=== PATIENT | male | born 1970 | race Caucasian/White ===

== ENCOUNTER 2020-03-16 01:07 | Day surgery (SDC) | payer OTHER, SELFPAY ==
[2020-03-16] MEDS: LACTATED RINGERS 1,000 ML 150 ML IV CONT (06:37)
[2020-03-16 06:42] VITALS: BP 121/82; PULSE 72; RESP 16; TEMP 36.5; O2SAT 99; BMI 29.6
--- NOTE | 2020-03-16 06:58 | WPDANESEPPF ---
Anes - Initial Pre Proc Eval Procedure: Operation Date: 03/16/20 07:30 Proposed Procedures p Colonoscopy - Shyam Borrero MD Date/Time: 03/16/20 06:58 Surgeon: Shyam Borrero MD Pre Op Diagnosis: change in bowel habits Patient Data Age: 49 Gender: M Height: 5 ft 10 in Weight: 93.7 kg Last Vital Signs Temp 36.5 C 03/16/20 06:42 Pulse 72 03/16/20 06:42 Resp 16 03/16/20 06:42 BP 121/82 03/16/20 06:42 Pulse Ox 99 03/16/20 06:42 Allergies Allergy/AdvReac Type Severity Reaction Status Date / Time No Known Allergies Allergy Unverified 03/11/20 09:59 Home Medications Medication Instructions Recorded Confirmed Type aspirin [Adult Low Dose Aspirin] 81 mg PO DAILY 03/11/20 03/11/20 History atorvastatin 20 mg PO DAILY 03/11/20 03/16/20 History Depo-Testosterone 1 ml WEEKLY 03/16/20 03/16/20 History Patient hx anesthesia problems: none Family hx anesthesia problems: none [facility] Past Medical History Medical History (Updated 03/16/20 @ 06:59 by Sonu Myers MD) Hyperlipidemia JOSS on CPAP Social History Social History Gender identity (if verbalized by the patient): Male Anes - Eval Final PreProcedure Day of Procedure 03/16/20 06:58 Patient weight: overweight Heart: regular rate and rhythm Lungs: clear to auscultation Airway: Mallampati scale class II Neurological: alert and oriented Last oral intake: >/= 8 hours ASA classification: II Emergent: no Anesthetic plan: proceed Anesthesia type and monitoring: general GIVS and standard monitoring Informed Consent: The patient's anesthetic plan and its attendant risks and benefits were discussed with the patient/family/POA. Questions were solicited and answers provided to the satisfaction of the patient/family/POA.
--- NOTE | 2020-03-16 07:33 | P.CONGI_ITS ---
Assessment and Plan Additional Plan This a 49-year-old white male patient seen in evaluation at the request Dr. James Serra. Patient reports least 9 months of incomplete evacuation. Associated with constipation. He tried magnesium citrate with brief relief of symptoms. He states stools are usually soft. Associated with much gas. He complains of rather diffuse abdominal pain. Some improvement on implementing fiber supplements over the last several weeks. Patient denies any bleeding and denies any weight loss. Past medical history is significant for shoulder surgery. Hernia repair. Current medications include atorvastatin and aspirin. He recently has started FiberCon daily. No stated drug allergies. Family history is noncontributory. Physical exam reveals him to be alert. Vital signs stable. HEENT exam unremarkable. He is anicteric. Lungs are clear to auscultation and percussion. Heart is without murmur or extra sounds. Abdominal exam bowel sounds are present soft nontender with no organomegaly. Digital external rectal exam is normal. Impression 1. Change in bowel habits. Constipation. Sense of incomplete evacuation. Diffuse abdominal pain also noted. Plan is to continue fiber supplements. MiraLax will be given intermittently as needed for bowel habit control. A colonoscopy will be performed this report follow separately. GI Consult Note Consult date/time: 03/16/20 07:33 HPI: Jeyson Costello is a 49 year old male [facility] Past Medical History Medical History (Updated 03/16/20 @ 06:59 by Sonu Myers MD) Hyperlipidemia JOSS on CPAP Social History Social History Gender identity (if verbalized by the patient): Male Meds Home Medications and Allergies Home Medications Medication Instructions Recorded Confirmed Type aspirin [Adult Low Dose Aspirin] 81 mg PO DAILY 03/11/20 03/11/20 History atorvastatin 20 mg PO DAILY 03/11/20 03/16/20 History Depo-Testosterone 1 ml WEEKLY 03/16/20 03/16/20 History Allergies Allergy/AdvReac Type Severity Reaction Status Date / Time No Known Allergies Allergy Unverified 03/11/20 09:59 Vital Signs Vital Signs - 24 hr 03/16/20 06:42 Temperature 36.5 C Pulse Rate 72 Respiratory Rate 16 Blood Pressure 121/82 Pulse Oximetry 99
[2020-03-16 07:37] VITALS: BP 121/82; PULSE 76; RESP 16; O2SAT 98
[2020-03-16 07:47] VITALS: BP 123/75; PULSE 66; RESP 16; O2SAT 99
[2020-03-16 07:57] VITALS: BP 124/75; PULSE 70; RESP 16; O2SAT 99
--- NOTE | 2020-03-16 08:25 | SUR.PHASEII ---
[id number] DR MYLES SPEAKING WITH PT & SPOUSE.
== END 2020-03-16 08:28 | disposition home or self-care (01) ==
PROVIDERS: PCP Family Medicine; Visit Provider Internal Medicine Gastroenterology
PROC: 0DJD8ZZ Inspection of Lower Intestinal Tract, Via Natural or Artificial Opening Endoscopic (ICD-10-PCS; CPT 45378; principal; 2020-03-16 07:30)
DX: K59.00 Constipation, unspecified (principal); D12.5 Benign neoplasm of sigmoid colon; K64.8 Other hemorrhoids; E78.5 Hyperlipidemia, unspecified; G47.33 Obstructive sleep apnea (adult) (pediatric); Z79.82 Long term (current) use of aspirin
CPT/HCPCS: 45385; 88305; J2704; J7120

== ENCOUNTER 2025-08-19 02:04 | Day surgery (SDC) | payer OTHER, SELFPAY ==
[2025-08-04 13:54] VITALS: BMI 29.4
--- OUTSIDE RECORDS SUMMARY | 2025-08-19 02:07 | XMS_ITS | Clinical Summary ---
Author Organization [facility] Address [address] [place] [address] Care Team Providers Care Return Agent Name Role Phone James Gavin MD Primary Care Provider [phone] Allergies No known active allergies Medications aspirin EC (ECOTRIN) 81 MG tablet Take 1 tablet (81 mg total) by mouth daily. Active TESTOSTERONE CYPIONATE & PROP IJ Inject 1 mL as directed every 7 days. Active CPAP DEVICE, DME, 1 Device by Does not apply route. Active Multiple Vitamin (MULTIVITAMIN ADULT OR) Take 1 tablet by mouth daily. Active rosuvastatin (CRESTOR) 20 MG tabletIndications: Hyperlipidemia, unspecified hyperlipidemia type Take 1 tablet (20 mg total) by mouth nightly at bedtime. 90 tablet 5 Active rosuvastatin (CRESTOR) 20 MG tabletIndications: Hyperlipidemia, unspecified hyperlipidemia type Take 1 tablet (20 mg total) by mouth nightly at bedtime. 90 tablet 1 5 025 Discontin ued(Reord er) Active Problems Problem Noted Date Diagnosed Date Overweight (BMI 25.0-29.9) 09/12/2022 JOSS on CPAP 01/07/2019 Snoring 08/01/2018 Hyperlipidemia 05/19/2015 Low testosterone 04/30/2015 Resolved Problems Problem Noted Date Diagnosed Date Resolved Date Pityriasis 04/03/2018 07/08/2022 Immunizations Immunization Administration Dates Next Due Dtp 03/06/1979, 3,04/13/1972,1971,02/11/1972 Fluarix 08/09/2017 Flublok (Quadrivalent) 08/23/2021,08/11/2020 Fluzone 6 Months+ Quad (0.5 mL Prefilled Syringe) 09/12/2022,08/22/2019 Influenza (Generic) 08/23/2021,08/09/2017,2015 Influenza Adult (Generic) 08/13/2024,,08/23/2018,2017,09/10/2016,08/29/2013 MMR 06/05/1990,04/19/1973 Opv 12/23/1977, 3,04/13/1972,1971 Td 03/24/1974 Tdap (Generic) 09/07/2015 Family History Medical History Relation Comments Alcohol Abuse Brother Arthritis Father Stroke Mother Vision loss Mother Arthritis Paternal Grandfather Arthritis Paternal Grandmother Alcohol Abuse Paternal Uncle Relation Status Comments Brother Father Alive Mother Alive Paternal Grandfather Paternal Grandmother Paternal Uncle Social History Tobacco Use Types Packs/Day Years Used Date Smoking Tobacco: Never Passive Smoke Exposure: Past Smokeless Tobacco: Former Chew Quit: 11/24/1991 Tobacco Cessation:Counseling Given: Not Answered Comments:Former, Quit 1990 chewed x1 yr Alcohol Use Standard Drinks/Week Comments Yes 3.3 (1 standard drink = 0.6 oz p ure alcohol) occasionally PHQ-2 Answer Date Recorded Patient Health Questionnaire-2 Score 0 08/02/2024 Sex and Gender Information Value Date Recorded Sex Assigned at Not on file Legal Sex Male 8:19 PM CDT Gender Identity Not on file Sexual Orientation Not on file Last Filed Vital Signs Vital Sign Reading Time Taken Comments Blood Pressure 120/71 08/02/2024 8:37 AM CDT Pulse 64 08/02/2024 8:37 AM CDT Temperature 36.7 C (98.1 F) 08/02/2024 8:37 AM CDT Respiratory Rate 16 08/02/2024 8:37 AM CDT Oxygen Saturation 97% 08/02/2024 8:37 AM CDT Inhaled Oxygen Concentration - - Weight 92.8 kg (204 lb 9.6 oz) 08/02/2024 8:37 A M CDT Height 177.8 cm (5' 10) 08/02/2024 8:37 AM CDT Body Mass Index 29.36 08/02/2024 8:37 AM CDT Plan of Treatment Upcoming Encounters Date Type Department Care Team (Late st Contact Info) Description 08/28/2025 8:40 AM CDT Office Visit [facility] Family & Internal Medicine [facility] [address] [place] [address] [place] [address] [place] [address] Health Maintenance Due Date Last Done Comments Annual Physical 1974 Hepatitis C 1989 Hepatitis B Vaccines (1 of 3 - 19+ 3-dose series) 1990 Pneumococcal Vaccine: 50+ Years (1 of 1 - PCV) 2021 Zoster Vaccines (1 of 2) 2021 PHQ-2 (Physician Steele) 11/27/2024 08/02/2024 COVID-19 Vaccine (2 - season) 2025 05/06/2021 DTaP, Tdap and Td Vaccines (3 - Td or Tdap) 09/07/2025 09/07/2015, 03/06/1979, 03/24/1974, Additional history exists Colorectal Cancer Screening Colonoscopy (10 Years) 03/16/2030 03/16/2020 Meningococcal B Vaccine Aged Out No l onger eligible based on patient's age to complete this topic Meningococcal Vaccine Aged Out No oswald addie eligible based on patient's age to complete this topic RSV Immunizations Under 20 Months Aged Out No longer eligible based on patient's age to complete this topic Procedures Procedure Name Priority Date/Time Associated Diagnosis Comments COLONOSCOPY/EGD GENERIC (SCAN ORDER) Routine 03/16/2020 8:52 AM CDT from Last 3 Months or Most Recently Relevant to Health Maintenance Results * COLONOSCOPY/EGD (03/16/2020 8:52 AM CDT) 03/16/2020 8:52 AM CDT us Documents Scanned SCANNING Edited Result - Final [facility] ONBASE from Last 3 Months or Most Recently Relevant to Health Maintenance Additional Health Concerns Infection Onset Date Last Indicated MRSA 12/17/2018 12/17/2018 Insurance [employer] OPEN ACCESS [facility] Care Teams Return Agent Relationship Specialty [place] [address] [place] [address] PCP - General FAMILY PRACTICE 11/09/18
--- OUTSIDE RECORDS SUMMARY | 2025-08-19 02:07 | XMS_ITS | Encounter Summary ---
Author Organization [facility] Address [address] [place] [address] Care Team Providers Care Senior Qa Tester Name Role Phone James Gavin MD Primary Care Provider [phone] Encounter Details Date Type Department Care Team (Late st Contact Info) Description 02/28/[address] [facility] [place], [place] [id number] Marylu Manrique, OT [address] [facility], [address] [place], [place] [id number] Social History Tobacco Use Types Packs/Day Years Used Date Smoking Tobacco: Never Smokeless Tobacco: Never Chew Quit: 11/24/1991 Comments:non smoker Alcohol Use Standard Drinks/Week Comments Yes 6.7 (1 standard drink = 0.6 oz p ure alcohol) occasionally PHQ-2 Answer Date Recorded Patient Health Questionnaire-2 Score 0 12/27/2022 Sex and Gender Information Value Date Recorded Sex Assigned at Not on file Legal Sex Male 8:19 PM CDT Gender Identity Not on file Sexual Orientation Not on file COVID-19 Exposure Response Date Recorded In the last 10 days, have yo u been in contact with someone who was confirmed or suspected to have Coronavirus/COVID-19? No / Unsure 03/01/2023 7:49 AM CDT documented as of this encounter Plan of Treatment Upcoming Encounters Date Type Department Care Team (Late st Contact Info) Description 08/28/2025 8:40 AM CDT Office Visit [facility] Family & Internal Medicine - [place] [address] [place] [address] [place] [address] [place] [address] documented as of this encounter Visit Diagnoses Not on filedocumented in this encounter Additional Health Concerns Infection Onset Date Last Indicated Resolved Time MRSA 12/17/2018 12/17/2018 Assessment Noted Time PHQ-9 Depression Total Score: 0 06/16/20 10:16 AM CDT documented as of this encounter Care Teams Senior Qa Tester Relationship Specialty [place] [address] [place] [address] PCP - General FAMILY PRACTICE 11/09/18 documented as of this encounter
--- OUTSIDE RECORDS SUMMARY | 2025-08-19 02:07 | XMS_ITS | Encounter Summary ---
Author Organization [facility] Address [address] [place] [address] Care Team Providers Care Bingo Manager Name Role Phone James Gavin MD Primary Care Provider [phone] Encounter Details Date Type Department Care Team (Late st Contact Info) Description 08/02/2024 [employer] Message Enc [facility] Medical Group Family & Internal Medicine [facility] [id number] [place] [address] [place] Gavin [place] [id number] [place] [address] Shingles vaccine Social History Tobacco Use Types Packs/Day Years Used Date Smoking Tobacco: Never Passive Smoke Exposure: Past Smokeless Tobacco: Former Chew Quit: 11/24/1991 Comments:Former, Quit 1990 c hewed x1 yr Alcohol Use Standard Drinks/Week Comments Yes 3.3 (1 standard drink = 0.6 oz p ure alcohol) occasionally PHQ-2 Answer Date Recorded Patient Health Questionnaire-2 Score 0 08/02/2024 Sex and Gender Information Value Date Recorded Sex Assigned at Not on file Legal Sex Male 8:19 PM CDT Gender Identity Not on file Sexual Orientation Not on file documented as of this encounter Functional Status * Over the past 2 weeks, how often have you been bothered by any of the following problems? Question Answer Date of Assessment Author Status Little interest or pleasure in doing things Not at all 08/02/2024 8:44 AM CDT Rachelle Last, PHOTONICS TECHNICIAN Act juan david Feeling down, depressed, or hopeless Not at all 08/02/2024 8:44 AM Rachelle Milan LPN Active Patient Health Questionnaire-2 Score 0 08/02/2024 8:44 AM Rachelle Milan L PN Active * Question Answer Date of Assessment Author Status Trouble falling or staying asleep, or sleeping too much Not at all 08/02/2024 8:44 AM Rachelle Milan LPN Active Feeling tired or having little energy Not at all 08/02/2024 8:44 AM Rachelle Milan LPN Active Poor appetite or overeating Not at all 08/02/2024 8:44 AM Rachelle Milan LPN Active Feeling bad about yourself - or that you are a failure or have let yourself or your family down Not at all 08/02/2024 8:44 AM Rachelle Milan LPN Active Trouble concentrating on things, such as reading the newspaper or watching television Not at all 08/02/2024 8:44 AM Rachelle Milan LPN Active Moving or speaking so slowly that other people could have noticed? Or the opposite - being so fidgety or restless that you have been moving around a lot more than usual. Not at all 08/02/2024 8:44 AM Rachelle Milan LPN Active Thoughts that you would be better off or hurting yourself in some way Not at all 08/02/2024 8:44 AM Rachelle Milan LPN Active Patient Health Questionnaire-9 Score 0 08/02/2024 8:44 AM Rachelle Milan LPN Active * Calculated C-SSRS Risk Score (Lifetime/Recent) Answer Date of Assessment Author Status No Risk Indicated 08/02/2024 8:44 AM Vince Milan LPN Active * If you checked off any problems on this questionnaire so far, Question Answer Date of Assessment Author Status How difficult have these problems made it for you to do your work, take care of things at home, or get along with other people? Not difficult at all 08/02/2024 8:44 AM CDT Rachelle Last LPN Active * Over the last 2 weeks, how often have you been bothered by any of the following problems? Question Answer Date of Assessment Author Status Feeling nervous, anxious, or on edge 0 08/02/2024 8:45 AM CDT Rachelle Last LPN Act juan david Not being able to stop or control worrying 0 08/02/2024 8:45 AM CDT Rachelle Last LPN Ac tive Worrying too much about different things 0 08/02/2024 8:45 AM CDT Rachelle Last LPN Ac tive Trouble relaxing 0 08/02/2024 8:45 AM CDT Rachelle Last LPN Active Being so restless that it is hard to sit still 0 08/02/2024 8:45 AM CDRachelle Brooke LP N Active Becoming easily annoyed or irritable 0 08/02/2024 8:45 AM CDT Rachelle Last LPN Act juan david Feeling afraid as if something awful might happen 0 08/02/2024 8:45 AM CDRachelle Brooke LPN Act juan david THOMAS-7 Total Score 0 08/02/2024 8:45 AM CDRachelle Brooke LPN Active * [place] Suicide Severity Rating Scale (Screener/Recent Self-Report) Question Answer Date of Assessment Author Status 1. Wish to be (Past 1 Month) No 08/02/2024 8:44 AM CDT Rachelle Last LPN Act juan david 2. Non-Specific Active Suicidal Thoughts (Past 1 Month) No 08/02/2024 8:44 AM CDRachelle Brooke LPN Act juan david 6. Suicidal Behavior (Lifetime) No 08/02/2024 8:44 AM CDRachelle Brooke LPN Act juan david documented as of this encounter Plan of Treatment Upcoming Encounters Date Type Department Care Team (Late st Contact Info) Description 08/28/2025 8:40 AM CDT Office Visit [facility] Family & Internal Medicine [facility] [address] [place] [address] [place] [address] [place] [address] documented as of this encounter Visit Diagnoses Not on filedocumented in this encounter Additional Health Concerns Infection Onset Date Last Indicated Resolved Time MRSA 12/17/2018 12/17/2018 Assessment Noted Time PHQ-9 Depression Total Score: 0 08/02/20 24 8:44 AM CDT documented as of this encounter Care Teams Bingo Manager Relationship Specialty [place] [address] [place] [address] PCP - General FAMILY PRACTICE 11/09/18 documented as of this encounter
--- OUTSIDE RECORDS SUMMARY | 2025-08-19 02:07 | XMS_ITS | Encounter Summary ---
Author Organization [facility] Address [address] [place] [address] Care Team Providers Care Automotive Power Electronics Engineer Name Role Phone James Gavin MD Primary Care Provider [phone] Encounter Details Date Type Department Care Team (Late st Contact Info) Description 01/25/2019 SENIOR COUNSEL COMMERCIAL ONLY [facility] Medical Group Priority Care - SAntoni Almeida [address] [place] [address] Scanned, Documents Social History Tobacco Use Types Packs/Day Years Used Date Smoking Tobacco: Never Smokeless Tobacco: Never Alcohol Use Standard Drinks/Week Comments Yes 0 (1 standard drink = 0.6 oz pur e alcohol) occasionally Sex and Gender Information Value Date Recorded Sex Assigned at Not on file Legal Sex Male 8:19 PM CDT Gender Identity Not on file Sexual Orientation Not on file documented as of this encounter Progress Notes * Zscanned, Documents - 01/25/2019 12:00 AM CST JEYSON ORDAZ MD: ACCT: [id number] ADMIT/SERVICE DATE: 01/24/19 DISCHARGE DATE: : 1970 PT TYPE: REG CLI SEX: M ORD SITE: [facility] REPORT OF PATHOLOGICAL EXAMINATION DATE OF SURGERY: 01/24/2019 SURGICAL PATH NO: [id number] DATE OBTAINED: 01/25/2019 DATE RETURNED: 01/28/2019 CHART DOCUMENT PATHOLOGICAL DIAGNOSIS: I. SKIN LESION FROM BACK: - SEBORRHEIC KERATOSIS SPECIMEN: BACK SHAVED SKIN BIOPSY GROSS EXAMINATION: THE SPECIMEN IS RECEIVED IN FORMALIN LABELED WITH PATIENT'S NAME AND BACK. THE SPECIMEN CONSISTS OF A SHAVED SKIN BIOPSY FRAGMENT MEASURING 0.9 X 0.9 X 0.2 CM. THE SKIN SURFACE IS ALMOST COMPLETELY COVERED BY A DARK PARKER ROUGHENED LESION MEASURING 0.7 X 0.6 CM. THE RESECTED MARGIN IS INKED. THE SPECIMEN IS BISECTED SUBMITTED ENTIRELY IN A SINGLE CASSETTE. AR/ROSA ISELA 01/25/2019 01/25/2019 02:32 P MICROSCOPIC EXAMINATION: SECTIONS REVEAL A SEBORRHEIC KERATOSIS OF SKIN. THE EPIDERMIS SHOWS HYPERKERATOSIS, PAPILLOMATOSIS, ACANTHOSIS, AND FORMATION OF KERATINOUS CYST WITHIN THE EPIDERMIS. THE DERMIS IS NORMAL. ELECTRONICALLY SIGNED BY WESTON RODRIGUEZ MD 01/29/2019 08:20 A DT: JOSE M:01/28/2019 DOC NO: [id number] HEATER documented in this encounter Plan of Treatment Upcoming Encounters Date Type Department Care Team (Late st Contact Info) Description 08/28/2025 8:40 AM CDT Office Visit [facility] Medical Group Family & Internal Medicine [facility] [address] [place] [phone] [place] [address] [place], [place] [id number] documented as of this encounter Visit Diagnoses Not on filedocumented in this encounter Additional Health Concerns Infection Onset Date Last Indicated Resolved Time MRSA 12/17/2018 12/17/2018 documented as of this encounter Care Teams Automotive Power Electronics Engineer Relationship Specialty [place] [address] [place], [place] [id number] PCP - General FAMILY PRACTICE 11/09/18 documented as of this encounter
--- OUTSIDE RECORDS SUMMARY | 2025-08-19 02:07 | XMS_ITS | Encounter Summary ---
Author Organization [facility] Address [address] [place] [address] Care Team Providers Care Regional Recruiter Name Role Phone Jmaes Gavin MD Primary Care Provider [phone]- [phone] Encounter Details Date Type Department Care Team (Late st Contact Info) Description 11/30/2022 Interventional [employer]inet Message Enc [facility] Orthopedic & Sports Medicine [facility] [address] [place] [address] Venancio Delgado MD [address] [place] [address] Cancellations Social History Tobacco Use Types Packs/Day Years Used Date Smoking Tobacco: Never Smokeless Tobacco: Never Chew Quit: 11/24/1991 Comments:non smoker Alcohol Use Standard Drinks/Week Comments Yes 6.7 (1 standard drink = 0.6 oz p ure alcohol) occasionally PHQ-2 Answer Date Recorded PHQ-2 Score - If the patient scores above 3, please move on to questions 3-9 0 04/11/2022 Sex and Gender Information Value Date Recorded Sex Assigned at Not on file Legal Sex Male 8:19 PM CDT Gender Identity Not on file Sexual Orientation Not on file documented as of this encounter Plan of Treatment Upcoming Encounters Date Type Department Care Team (Late st Contact Info) Description 08/28/2025 8:40 AM CDT Office Visit [facility] Family & Internal Medicine [address] [address] James Gavin MD [address] [place] [address] documented as of this encounter Visit Diagnoses Not on filedocumented in this encounter Additional Health Concerns Infection Onset Date Last Indicated Resolved Time MRSA 12/17/2018 12/17/2018 Assessment Noted Time PHQ-9 Depression Total Score: 0 06/16/20 10:16 AM CDT documented as of this encounter Care Teams Regional Recruiter Relationship Specialty [place] [address] [place] [address] PCP - General FAMILY PRACTICE 11/09/18 documented as of this encounter
--- OUTSIDE RECORDS SUMMARY | 2025-08-19 02:07 | XMS_ITS | Clinical Summary ---
Author Organization [facility] Address [address] [place] [address] Care Team Providers Care Commercial Real Estate Appraiser Name Role Phone Unavailable Primary Care Provider Unavailabl e Social History Tobacco Use Types Packs/Day Years Used Date Smoking Tobacco: Never Assessed Sex and Gender Information Value Date Recorded Sex Assigned at Not on file Legal Sex Male 11:42 AM GUARD ENTRANCE REGISTRAR Gender Identity Not on file Sexual Orientation Not on file Plan of Treatment Health Maintenance Due Date Last Done Comments Hepatitis C Virus (HCV) Screening 1971 TdaP Immunization 1971 Hepatitis B Immunization (1 of 3 - 19+ 3-dose series) 1990 Cologuard 2016 Colonoscopy 2016 Colorectal Cancer Screening 2016 Immunochemical Fecal Occult Blood 2016 Pneumococcal Immunization (5 0+ years) (1 of 1 - PCV) 2021 Zoster Immunization (1 of 2) 2021 Influenza Immunization (#1) 2025 SARS-COV-2 Immunization ( - season) 2025 Respiratory Syncytial Virus (RSV) Immunization (Adult) (1 - 1-dose 75+ series) 2046 Human Papillomavirus (HPV) Immunization Aged Out No longer eligible b ased on patient's age to complete this topic Meningococcal Immunization (ACWY) Aged Out No longer eligible based on patient's age to complete this topic Rotavirus Immunization Aged Out No lo nger eligible based on patient's age to complete this topic
--- OUTSIDE RECORDS SUMMARY | 2025-08-19 02:07 | XMS_ITS | Encounter Summary ---
Author Organization [facility] Address [address] [place] [id number] Care Team Providers Care Medical Coding Manager Name Role Phone James Gavin MD Primary Care Provider [phone] Encounter Details Date Type Department Care Team (Late st Contact Info) Description 09/13/2022 Karma Platform Message Enc [facility] Family & Internal Medicine [facility] [id number] [place] [phone] Isa, [facility] Provider EMG/NCS Social History Tobacco Use Types Packs/Day Years [...] suspected to have Coronavirus/COVID-19? No / Unsure 09/12/2022 7:01 AM CDT documented as of this encounter Plan of Treatment Upcoming Encounters Date Type Department Care Team (Late st Contact Info) Description 08/28/2025 8:40 AM CDT Office Visit [facility] Family & Internal Medicine [facility] [id number] [place] [phone] [place] [address] [place] [address] documented as of this encounter Visit Diagnoses Not on filedocumented in this encounter Additional Health Concerns Infection Onset Date Last Indicated Resolved Time MRSA 12/17/2018 12/17/2018 Assessment Noted Time PHQ-9 Depression Total Score: 0 06/16/20 21 10:16 AM CDT documented as of this encounter Care Teams Medical Coding Manager Relationship Specialty [place] [address] [place] [address] PCP - General FAMILY PRACTICE 11/09/18 documented as of this encounter
[2025-08-19 08:46] VITALS: BP 115/80; PULSE 83; RESP 19; TEMP 36.5; O2SAT 99
--- NOTE | 2025-08-19 08:49 | WPDANESEPPF ---
Anes - Initial Pre Proc Eval Procedure: Operation Date: 08/19/25 09:30 Proposed Procedures p Screening Colonoscopy - Damien Hickey MD Date/Time: 08/19/25 08:49 Surgeon: Damien Hickey MD Pre Op Diagnosis: Personal history of colon polyps, unspecified Patient Data Age: 54 Gender: M Height: 1.78 m Weight: 93 kg Last Vital Signs Temp 97.7 F 08/19/25 08:46 Pulse 83 08/19/25 08:46 Resp 19 08/19/25 08:46 BP 115/80 08/19/25 08:46 Pulse Ox 99 08/19/25 08:46 O2 Del Method Room Air 08/19/25 08:46 Allergies Allergy/AdvReac Type Severity Reaction Status Date / Time No Known Allergies Allergy Verified 08/19/25 08:43 Home Medications ?Medication ?Instructions ?Recorded ?Confirmed ?Type aspirin 81 mg tablet,delayed 81 mg PO DAILY 03/11/20 08/19/25 History release (Adult Low Dose Aspirin) atorvastatin 20 mg tablet 20 mg PO DAILY 03/11/20 08/19/25 History Depo-Testosterone 1 ml WEEKLY 03/16/20 03/16/20 History Patient hx anesthesia problems: none Family hx anesthesia problems: none Results Review: All pre-operative results and documents have been reviewed as part of the pre-operative evaluation. [facility] Past Medical History Medical History Hyperlipidemia JOSS on CPAP Family History Family History Other Diabetes mellitus Family history of malignant neoplasm Hypertension Social History Social History Smoking status: Never smoker Alcohol intake: current Drinks per week: 4 Substance use: never Substance use type: does not use Living arrangements: with family Gender identity (if verbalized by the patient): Male Spiritual care concerns: No Anes - Eval Final PreProcedure Day of Procedure 08/19/25 08:49 Patient weight: obese Lungs: normal air movement Airway: Mallampati scale class II Neurological: alert and oriented Last oral intake: >/= 8 hours ASA classification: III Emergent: no Anesthetic plan: proceed Anesthesia type and monitoring: general GIVS and standard monitoring Results Review: All pre-operative results and documents have been reviewed as part of the pre-operative evaluation. Hyperlipidemia, JOSS on CPAP, pt active overall, no cp or sob. Informed Consent: The patient's anesthetic plan and its attendant risks and benefits were discussed with the patient/family/POA. Questions were solicited and answers provided to the satisfaction of the patient/family/POA.
[2025-08-19] MEDS: LACTATED RINGERS 1,000 ML 150 ML IV CONT (09:09)
--- NOTE | 2025-08-19 09:13 | SUR.PREOP ---
Patient states he has a DNR. Patient requests to be a full code for this elective procedure. Code status form signed with patient at bedside.
--- NOTE | 2025-08-19 09:14 | SUR.PREOP ---
Patient had unresponsive event while starting IV. Placed patient in Trendelenburg position. Patient regained consciousness right away. Cool rag placed on his head. Patient states this has happened to him before, and that he is starting to feel better. Vital signs recheck are HR 73, BP 113/73, O2 96%.
--- NOTE | 2025-08-19 09:27 | PM.HPGS ---
History of Present Illness History of Present Illness Consent: Risks, benefits, and alternatives have been discussed and questions answered. Patient agrees to proceed with procedure. Chief complaint: Personal history of colon polyps, unspecified Narrative: Jeyson Costello is a 54 year old male with colon polyp in 2019 Review of Systems Review of Systems: All systems reviewed & are unremarkable except as noted in HPI and below PMFSH Past Medical History Medical History (Updated 08/19/25 @ 09:32 by Damien Hickey MD) Colon polyp Hyperlipidemia JOSS on CPAP Family History Family History Other Diabetes mellitus Family history of malignant neoplasm Hypertension Social History Social History Smoking status: Never smoker Alcohol intake: current Drinks per week: 4 Substance use: never Substance use type: does not use Living arrangements: with family Gender identity (if verbalized by the patient): Male Spiritual care concerns: No Meds Home Medications and Allergies Home Medications ?Medication ?Instructions ?Recorded ?Confirmed ?Type aspirin 81 mg tablet,delayed 81 mg PO DAILY 03/11/20 08/19/25 History release (Adult Low Dose Aspirin) atorvastatin 20 mg tablet 20 mg PO DAILY 03/11/20 08/19/25 History Depo-Testosterone 1 ml WEEKLY 03/16/20 03/16/20 History Allergies Allergy/AdvReac Type Severity Reaction Status Date / Time No Known Allergies Allergy Verified 08/19/25 08:43 Vital Signs Vital Signs - 24 hr 08/19/25 08:46 Temperature 97.7 F Pulse Rate 83 Respiratory Rate 19 Blood Pressure 115/80 Pulse Oximetry 99 Oxygen Delivery Room Air Exam Const: General: comfortable and no acute distress HENMT: Face/Nose/Sinus: Normal nares present Eyes: General: appearance normal, both eyes and all related structures Neck: Neck: no JVD Resp: Auscultation: clear to auscultation bilaterally Cardio: Rate: regular rate Rhythm: regular rhythm GI: Inspection: non-distended GI Palp: Yes Soft to palpation Skin: General skin exam: normal color Neuro: Speech: normal speech Extrem: General: normal to inspection Psych: Mental Status: mental status grossly normal Assessment and Plan Assessment and plan (1) Colon polyp: Code(s): K63.5 - Polyp of colon Status: Acute Assessment and Plan: colonoscopy
--- NOTE | 2025-08-19 09:44 | S_PTH ---
PATIENT: Jeyson Costello LOC: [facility]#:[id number] AGE/SX: 54/M ROOM: RE08/19/[address]: Damien Hickey MD : 1970 BED: DIS: 08/19/2025 SPEC #: [id number] RECD: 08/19/25 10:23 STATUS: MARGARITA GOULD #: [id number] TAMMIE: 08/19/25 09:[address]: Damien Hickey DEPT: [facility] Surgical RECD BY: Shari Griggs ENTERED: 08/19/25 10:23 SP TYPE: Surgical OTHR DR: James GavinMD Tissues: A - Colon Polypectomy B - Colon Polypectomy Procedures: Hematoxylin and Eosin Stain Gross and Microscopic Level 4
[2025-08-19 09:46] VITALS: BP 96/49; PULSE 82; RESP 20; O2SAT 93
[2025-08-19 09:56] VITALS: BP 94/54; PULSE 72; RESP 17; O2SAT 96
[2025-08-19 10:06] VITALS: BP 100/70; PULSE 76; RESP 17; O2SAT 97
== END 2025-08-19 10:24 | disposition home or self-care (01) ==
PROVIDERS: PCP Family Medicine; Referring Provider Internal Medicine Gastroenterology; Visit Provider Internal Medicine Gastroenterology
PROC: 0DJD8ZZ Inspection of Lower Intestinal Tract, Via Natural or Artificial Opening Endoscopic (ICD-10-PCS; CPT 45378; principal; 2025-08-19 09:30)
DX: Z12.11 Encounter for screening for malignant neoplasm of colon (principal); D12.0 Benign neoplasm of cecum; D12.3 Benign neoplasm of transverse colon; K64.8 Other hemorrhoids; E78.5 Hyperlipidemia, unspecified; G47.33 Obstructive sleep apnea (adult) (pediatric); E66.9 Obesity, unspecified; Z68.29 Body mass index [BMI] 29.0-29.9, adult; Z79.82 Long term (current) use of aspirin; Z99.89 Dependence on other enabling machines and devices; Z80.9 Family history of malignant neoplasm, unspecified
CPT/HCPCS: 45385; 88305; J2003; J2704; J7120